=== PATIENT | female | born 1990 | race Caucasian/White ===

== ENCOUNTER 2017-06-01 20:16 | Inpatient (IN) | payer MEDICAID ==
[2017-06-01] MEDS ORDERED: CARBOPROST 250 MCG INJ IM (21:00)
[2017-06-01] MEDS ORDERED: METHYLERGONOVINE 0.2 MG INJ IM (21:00)
[2017-06-01] MEDS ORDERED: BUTORPHANOL 2 MG INJ IV (21:00)
[2017-06-01] MEDS ORDERED: OXYTOCIN 30 UNITS/LR 500 ML IV (21:00)
[2017-06-01] MEDS ORDERED: LIDOCAINE 1% (MPF) 30 ML INJ INJ (21:00)
[2017-06-01] MEDS ORDERED: MISOPROSTOL 200 MCG TAB PR (21:00)
[2017-06-01] MEDS: LACTATED RINGER'S 1,000 ML IV ×2 (21:59→22:30)
[2017-06-01 22:01] LABS: ADD MAN DIFF? NO
[2017-06-01 22:07] LABS: BASOPHILS % 0.2 % (0.0-2.0); EOSINOPHILS # 0.1 10^3/ul (0.0-0.5); EOSINOPHILS % 0.5 % (0.0-7.0); HEMATOCRIT 37.6 % (37.0-47.0); HEMOGLOBIN 12.3 g/dl (12.0-16.0); LYMPHOCYTES # 1.8 10^3/ul (0.8-2.9); LYMPHOCYTES % 18.6 % (15.0-51.0); MEAN CORPUSCULAR HEMOGLOBIN 27.3 pg (29.0-33.0); MEAN CORPUSCULAR HGB CONC 32.7 g/dl (32.0-37.0); MEAN CORPUSCULAR VOLUME 83.6 fl (82.0-101.0); MEAN PLATELET VOLUME 11.8 fl (7.4-10.4); MONOCYTE # 0.8 10^3/ul (0.3-0.9); MONOCYTES % 7.6 % (0.0-11.0); NEUTROPHIL # 7.2 10^3/ul (1.6-7.5); NEUTROPHILS % 72.6 % (39.0-77.0); PLATELET COUNT 242 10^3/UL (140-415); RED CELL DISTRIBUTION WIDTH 14.4 % (11.5-14.5)
[2017-06-01 22:07] LABS: WHITE BLOOD COUNT 9.9 10^3/ul (4.8-10.8)
[2017-06-01 22:16] LABS: INR 0.86; PROTIME 11.8 Sec (11.9-14.9); PT RATIO 0.9
[2017-06-01 22:17] LABS: PARTIAL THROMBOPLASTIN TIME 26.9 Sec (25.0-35.0)
[2017-06-01] MEDS: AMPICILLIN 2 GM/NS (PMX) 100 ML IV (22:24)
[2017-06-01 22:38] LABS: AMPHETAMINE/METHAMPHETAMINE Negative (NEGATIVE); BARBITURATES Negative (NEGATIVE); BENZODIAZEPINES Negative (NEGATIVE); CANNABINOIDS Negative (NEGATIVE); COCAINE Negative (NEGATIVE); OPIATES Negative (NEGATIVE)
[2017-06-01 22:46] LABS: ADD UMIC YES; UR ASCORBIC ACID NEGATIVE (NEGATIVE); UR BACTERIA MODERATE /HPF (NONE SEEN); UR BILIRUBIN (Dip) NEGATIVE (NEGATIVE); UR BLOOD (Dip) 2+ mg/dL (NEGATIVE); UR CLARITY SLIGHTLY CLOUDY (CLEAR); UR COLOR YELLOW (YELLOW); UR GLUCOSE (Dip) NEGATIVE (NEGATIVE); UR KETONES (Dip) NEGATIVE (NEGATIVE); UR LEUKOCYTE ESTERASE (Dip) NEGATIVE Leu/ul (NEGATIVE); UR NITRITE (Dip) NEGATIVE (NEGATIVE); UR RBC 1 /HPF (0-5); UR SPECIFIC GRAVITY (Dip) 1.009 (1.003-1.030); UR SQUAMOUS EPITHELIAL CELL MODERATE /HPF (FEW); UR TOTAL PROTEIN (Dip) NEGATIVE (NEGATIVE); UR UROBILINOGEN (Dip) NEGATIVE (NEGATIVE); UR WBC 4 /HPF (0-5)
[2017-06-01 22:50] LABS: HEPATITIS B SURFACE ANTIGEN NEGATIVE (NEGATIVE)
[2017-06-01] MEDS: OXYTOCIN 30 UNITS/LR 500 ML IV ×2 (23:28→23:43)
[2017-06-01] MEDS: IBUPROFEN 600 MG TAB PO (23:42)
[2017-06-02] MEDS ORDERED: ONDANSETRON 4 MG INJ IV
[2017-06-02] MEDS ORDERED: MISOPROSTOL 200 MCG TAB PR
[2017-06-02] MEDS ORDERED: OXYCODONE/ASPIRIN (4.88/325) TAB PO ×2
[2017-06-02] MEDS ORDERED: DIBUCAINE 1% 30 GM OINT PR
[2017-06-02] MEDS ORDERED: WITCH HAZEL/GLYCERIN PAD PR
[2017-06-02] MEDS ORDERED: METHYLERGONOVINE 0.2 MG INJ IM
[2017-06-02] MEDS ORDERED: CARBOPROST 250 MCG INJ IM
[2017-06-02] MEDS ORDERED: SENNA/DOCUSATE NA (8.6MG/50MG) TAB PO
[2017-06-02] MEDS ORDERED: AMPICILLIN 1 GM/NS (PMX) 50 ML IV (01:00)
[2017-06-02] MEDS: OXYTOCIN 30 UNITS/LR 500 ML IV (03:07)
[2017-06-02] MEDS: BENZOCAINE 20% 56 ML SPRAY TOP ×2 (06:35→06:37)
[2017-06-02] MEDS: IBUPROFEN 600 MG TAB PO ×4 (06:37→17:57)
[2017-06-02 07:00] LABS: ADD MAN DIFF? NO
[2017-06-02 07:02] LABS: WHITE BLOOD COUNT 13.7 10^3/ul (4.8-10.8)
[2017-06-02 07:02] LABS: BASOPHILS % 0.2 % (0.0-2.0); EOSINOPHILS % 0.1 % (0.0-7.0); HEMATOCRIT 34.3 % (37.0-47.0); HEMOGLOBIN 11.3 g/dl (12.0-16.0); LYMPHOCYTES # 1.8 10^3/ul (0.8-2.9); LYMPHOCYTES % 13.3 % (15.0-51.0); MEAN CORPUSCULAR HEMOGLOBIN 27.4 pg (29.0-33.0); MEAN CORPUSCULAR HGB CONC 32.9 g/dl (32.0-37.0); MEAN CORPUSCULAR VOLUME 83.1 fl (82.0-101.0); MEAN PLATELET VOLUME 11.8 fl (7.4-10.4); MONOCYTES % 7.2 % (0.0-11.0); NEUTROPHIL # 10.8 10^3/ul (1.6-7.5); NEUTROPHILS % 78.9 % (39.0-77.0); PLATELET COUNT 231 10^3/UL (140-415); RED BLOOD COUNT 4.13 10^6/ul (4.20-5.40); RED CELL DISTRIBUTION WIDTH 14.5 % (11.5-14.5)
[2017-06-02] MEDS: SENNA/DOCUSATE NA (8.6MG/50MG) TAB PO ×2 (12:02→21:10)
[2017-06-02 14:01] LABS: RAPID PLASMA REAGIN NONREACTIVE (NR)
[2017-06-02] MEDS: LANOLIN 7 GM TUBE TOP (18:01)
[2017-06-03] MEDS: IBUPROFEN 600 MG TAB PO ×4 (00:21→17:50)
[2017-06-03] MEDS: SENNA/DOCUSATE NA (8.6MG/50MG) TAB PO (09:27)
[2017-06-04 12:33] LABS: RUBELLA ANTIBODY - IGG 6.79 index
== END 2017-06-03 21:35 | disposition home or self-care (01) | DRG 775 ==
LOC: OBT 20:16 → L-D 06-02 01:01 → PP1 06-02 08:08 → OBT 20:46 → L-D 20:40
PROC: 10E0XZZ Delivery of Products of Conception, External Approach (ICD-10-PCS; principal; 2017-06-01)
PROC: 3E033VJ Introduction of Other Hormone into Peripheral Vein, Percutaneous Approach (ICD-10-PCS; 2017-06-01)
DX: O69.2XX0 Labor and delivery complicated by other cord entanglement, with compression, not applicable or unspecified (principal); Z3A.37 37 weeks gestation of pregnancy; Z37.0 Single live birth
CPT/HCPCS: 76815; 80307; 81001; 85025; 85610; 85730; 86592; 86762; 86900; 86901; 87340; 99464